=== PATIENT | male | born 1990 | race Caucasian/White ===

== ENCOUNTER 2020-02-02 15:36 | Emergency (ER) | payer BC ==
--- NOTE | 2020-02-02 15:59 | EDM.PDOC ---
ED HPI GENERAL MEDICAL PROBLEM - General Chief Complaint: Respiratory Problem Stated Complaint: COLD/COUGH Time Seen by Provider: 02/02/20 15:46 Source of Information: Reports: Patient History Limitations: Reports: No Limitations - History of Present Illness INITIAL COMMENTS - FREE TEXT/NARRATIVE: HISTORY AND PHYSICAL: History of present illness: Patient is a 29-year-old male who presents to the emergency room with complaints of sore throat and cough x3 days. He states his employer made him come to the emergency room to be "tested for coronavirus". He states he is not able to return to work until he is "cleared". Patient describes his cough as infrequent, dry and nonproductive. Patient denies any fever, chills, headache, change in vision, syncope or near syncope. Denies any chest pain, back pain, shortness of breath or cough. Denies any GI or symptoms. Patient has been eating and drinking appropriately. Patient denies any recent travel or exposure to anyone who is been ill. Review of systems: As per history of present illness and below otherwise all systems reviewed and negative. Past medical history: As per history of present illness and as reviewed below otherwise noncontributory. Surgical history: As per history of present illness and as reviewed below otherwise noncontributory. Social history: See social history for further information Family history: As per history of present illness and as reviewed below otherwise noncontributory. Physical exam: General: Well developed and well nourished 29 year old male. A&O x 3. Nontoxic appearing and in no acute distress. VSS and have been reviewed by me. HEENT: Atraumatic, normocephalic, pupils equal and reactive bilaterally, negative for conjunctival pallor or scleral icterus, mucous membranes moist, TMs normal bilaterally, throat erythematous without exudate or soft tissue swelling, neck supple, nontender, trachea midline. No drooling or trismus noted. No meningeal signs. No hot potato voice noted. Lungs: Slightly diminished otherwise clear to auscultation, breath sounds equal bilaterally, chest nontender. Heart: S1S2, regular rate and rhythm without overt murmur Abdomen: Soft, nondistended, nontender. Skin: Intact, warm, dry. No lesions or rashes noted. Extremities: Atraumatic, moves all extremities per self without difficulty or deficits, negative for cords or calf pain. Neurovascular unremarkable. Neuro: Awake, alert, oriented. Cranial nerves II through XII unremarkable. Cerebellum unremarkable. Motor and sensory unremarkable throughout. Exam nonfocal. Notes: With the recent COVID-19 outbreak patient has been screened: patient denies any recent travel to high risk areas or exposure to anyone who recently tested or is begin tested for COVID-19. Patient is at low risk. Patient was informed of this. He would like to be screened for influenza and strep throat. Diagnostics are unremarkable. Supportive care measures were reviewed and discussed. Voices understanding and is agreeable to plan of care. Denies any further questions or concerns at this time. Diagnostics: Influenza, Strep, CXR Therapeutics: None Prescription: None Impression: Encounter for medical screening exam Viral URI Plan: 1. Your vital signs and physical exam are within normal limits. Negative CXR, influenza and strep screening today. The [facility] has criteria that has been set in order to be tested for COVID-19; at this time he did not meet any criteria to be swabbed for this. Continue to monitor your symptoms. For further questions related to the COVID-19, the public can call the [facility] hotline at [phone] from 7am - 7pm Wednesday - Wednesday. 2. Good handwashing (at least 20 seconds) and frequently. Contact precautions such as coughing into your elbow, etc... 3. You can alternate Tylenol and ibuprofen as needed for pain and fever management. 3. Please follow-up with your primary care provider as we discussed. Return to the ED as needed and as discussed. Definitive disposition and diagnosis as appropriate pending reevaluation and review of above. Duration: Day(s): body aches Pain Score (Numeric/FACES): 3 - Related Data Allergies Allergy/AdvReac Type Severity Reaction Status Date / Time No Known Allergies Allergy Verified 02/02/20 16:04 Home Meds: Home Meds Amoxicillin/Clavulanate K [Augmentin 875-125 MG] 1 tab PO BID 10 Days #20 tablet 02/02/20 [Rx] ED ROS GENERAL - Review of Systems Review Of Systems: Comprehensive ROS is negative, except as noted in HPI. ED EXAM, GENERAL - Physical Exam Exam: See Below (See dictation) Course - Vital Signs Last Recorded V/S: Last Vital Signs Temp 97.3 F 02/02/20 16:05 Pulse 62 02/02/20 16:05 Resp 16 02/02/20 16:05 BP 148/81 H 02/02/20 16:05 Pulse Ox 99 02/02/20 16:05 - Orders/Labs/Meds Orders: Active Orders 24 hr Category Date Time Status Chest 2V [CR] Stat Exams 02/02/20 16:10 Taken CULTURE STREP A CONFIRMATION [RM] Stat Lab 02/02/20 16:23 Results STREP SCRN A RAPID W CULT CONF [RM] Stat Lab 02/02/20 16:23 Results Isolation [COMM] Routine Oth 02/02/20 16:10 Active Departure - Departure Time of Disposition: 16:52 Disposition: Home, Self-Care 01 Clinical Impression: Encounter for medical screening examination, Viral URI - Discharge Information Prescriptions: Amoxicillin/Clavulanate K [Augmentin 875-125 MG] 1 tab PO BID 10 Days #20 tablet Instructions: Viral Respiratory Infection, [id number] Referrals: PCP,None [Primary Care Provider] - Forms: ED Department Discharge Additional Instructions: The following information is given to patients seen in the emergency department who are being discharged to home. This information is to outline your options for follow-up care. We provide all patients seen in our emergency department with a follow-up referral. The need for follow-up, as well as the timing and circumstances, are variable depending upon the specifics of your emergency department visit. If you don't have a primary care physician on staff, we will provide you with a referral. We always advise you to contact your personal physician following an emergency department visit to inform them of the circumstance of the visit and for follow-up with them and/or the need for any referrals to a consulting specialist. The emergency department will also refer you to a specialist when appropriate. This referral assures that you have the opportunity for follow-up care with a specialist. All of these measure are taken in an effort to provide you with optimal care, which includes your follow-up. Under all circumstances we always encourage you to contact your private physician who remains a resource for coordinating your care. When calling for follow-up care, please make the office aware that this follow-up is from your recent emergency room visit. If for any reason you are refused follow-up, please contact the [facility] Emergency Department at and asked to speak to the emergency department charge nurseKathy [facility] [address] [place] [address] [facility] [address] [place] [address] 1. Your vital signs and physical exam are within normal limits. Negative CXR, influenza and strep screening today. The CDC has criteria that has been set in order to be tested for COVID-19; at this time he did not meet any criteria to be swabbed for this. Continue to monitor your symptoms. For further questions related to the COVID-19, the public can call the [facility] hotline at [phone] from 7am - 7pm Wednesday - Wednesday. 2. Good handwashing (at least 20 seconds) and frequently. Contact precautions such as coughing into your elbow, etc... 3. You can alternate Tylenol and ibuprofen as needed for pain and fever management. 3. Please follow-up with your primary care provider as we discussed. Return to the ED as needed and as discussed. Sepsis Event Note - Focused Exam Vital Signs: Vital Signs Temp Pulse Resp BP Pulse Ox 02/02/20 16:05 97.3 F 62 16 148/81 H 99 Date Exam was Performed: 02/02/20 Time Exam was Performed: 16:51 - My Orders Last 24 Hours: My Active Orders 02/02/20 16:10 Chest 2V [CR] Stat Isolation [COMM] Routine 02/02/20 16:23 CULTURE STREP A CONFIRMATION [RM] Stat STREP SCRN A RAPID W CULT CONF [RM] Stat - Assessment/Plan Last 24 Hours: My Active Orders 02/02/20 16:10 Chest 2V [CR] Stat Isolation [COMM] Routine 02/02/20 16:23 CULTURE STREP A CONFIRMATION [RM] Stat STREP SCRN A RAPID W CULT CONF [RM] Stat
--- NOTE | 2020-02-02 17:07 | CR ---
Chest: 2 views of the chest were obtained. Comparison: No prior chest x-ray. Heart size and mediastinum are normal. Lungs are clear with no acute parenchymal change. No acute osseous finding is seen. Impression: 1. Nothing acute is appreciated on 2 view chest x-ray. Diagnostic code #1 This report was dictated in MDT
== END 2020-02-02 17:22 | disposition home or self-care (01) ==
LOC: MW.ED 15:36
DX: J06.9 Acute upper respiratory infection, unspecified (principal); Z20.828 Contact with and (suspected) exposure to other viral communicable diseases
CPT/HCPCS: 71046; 71046-26; 87081; 87804; 87880-QW; 99282; 99283-25